=== PATIENT | male | born 2005 | race Two or more races ===

== ENCOUNTER 2023-08-28 20:20 | Inpatient (IN) | payer OTHER, SELFPAY ==
[2023-08-28] VITALS (11 sets, daily range): BP systolic 30–146; BP diastolic 73–90; BMI 24.1
[2023-08-28] MEDS: NSS 1000 IV ×2 (15:09→18:32)
[2023-08-28] MEDS: TORADOL 30 MG IV (15:13)
--- NOTE | 2023-08-28 15:13 | ED.GENMED ---
History of Present Illness
<Florentin Fletcher PA-C - Last Filed: 08/28/23 18:44>
General
Chief Complaint: Abdominal Pain
Source: patient
Time Seen by Provider: 08/28/23 14:44
History of Present Illness
History of Present Illness:
17-year-old male with no significant past medical history presenting emergency department for evaluation of sudden onset of periumbilical abdominal pain around 1145, somewhat severe, nonradiating, now a little bit more generalized but somewhat
improved than earlier. He denies any fevers, chills, rigors, nausea, vomiting, bowel changes or urinary symptoms. States he has had similar pain in the past that usually occurs when he is stressed but notes he did not seem to have any stress out
of the ordinary today. Surgical history was noted for previous hernia repair. Social history noncontributory. Patient did not take anything for pain prior to arrival.
Past History
<Florentin Fletcher PA-C - Last Filed: 08/28/23 18:44>
Past History
ED Past Medical History: None
ED Past Surgical History: Other (hernia)
Social History
Tobacco: Non-smoker
Alcohol: None
Drug: None
Personal: Single
Living: with family
Review of Systems
<Florentin Fletcher PA-C - Last Filed: 08/28/23 18:44>
Review of Systems
All Other Systems: ROS reviewed and negative except as documented in HPI and ROS
Phy Exam
<Florentin Fletcher PA-C - Last Filed: 08/28/23 18:44>
Physical Exam
Physical Exam:
GENERAL: Alert , in no apparent distress but does appear mildly uncomfortable
EYE: clear conjunctiva b/l
HEAD: NCAT
ENT: o/p clr, mmm.
CARDIAC: Regular rate and rhythm .
LUNGS: Clear breath sounds bilaterally, no acute respiratory distress, no wheezes/rales/rhonchi
ABDOMEN: Soft, without focal tenderness, no r/g, no cvat, negative Stanley sign, no tenderness at McBurney's point. Patient stating pain is not made any worse with palpation
NEUROLOGICAL: Alert and oriented
SKIN: Warm and dry, skin intact.
MUSCULOSKELETAL: No edema, well perfused.
PSYCH: Normal and appropriate interaction.
Scores
<Florentin Fletcher PA-C - Last Filed: 08/28/23 18:44>
Heart Failure Risk
Heart Failure Risk Score: Not Applicable
Heart Score for Chest Pain Patients
STEMI patient?: Not applicable
Withdrawal Assessment of Alcohol
Withdrawal Assessment Completed?: Not applicable
Course
<Florentin Fletcher PA-C - Last Filed: 08/28/23 18:44>
Orders/Labs/Results
Orders:
Orders
08/28/23 14:53
0.9% Sodium Chloride 1000 ml [Nss] 1,000 ml IV BOLUS
Ketorolac [Toradol] 30 mg IV NOW STA
08/28/23 15:11
Complete Blood Count/With Diff Urgent
Comprehensive Metabolic Panel Urgent
Lipase Urgent
Urinalysis Reflex To Culture Urgent
Date Specimen was Collected: 08/28/23
Time Specimen was Collected: 14:56
08/28/23 15:26
CT Abd/pelvis W Iv Cont Urgent
Comment:
Reason For Exam: generalized abd pain
08/28/23 17:05
Morphine Sulfate 2 mg IV NOW STA
08/28/23 18:19
0.9% Sodium Chloride 1000 ml [Nss] 1,000 ml IV BOLUS
Piperacillin/Tazo 3.375 Gram [Zosyn] 3.375 gram in 50 ml IV NOW
08/28/23 18:22
HYDROmorphone [Dilaudid] 0.5 mg IV NOW STA
08/28/23 18:23
Pantoprazole [Protonix IV] 80 mg IV NOW STA
Abnormal Lab Results
08/28/23
15:11
WBC 13.5 H 10^3/uL
(4.8-10.8)
MCV 74.8 L fL
(80.0-94.0)
MCH 24.2 L pg
(27.0-31.0)
MCHC 32.3 L g/dL
(33.0-37.0)
RDW 15.3 H %
(11.5-14.5)
Absolute Neuts (auto) 11.8 H 10^3/uL
(1.4-6.5)
Absolute Lymphs (auto) 1.1 L 10^3/uL
(1.2-3.4)
Neutrophils % 87.4 H %
(42.2-75.2)
Lymphocytes % 7.8 L %
(20.5-51.1)
Glucose 117 H mg/dl
(70-99)
Albumin 5.2 H g/dl
(3.5-5.0)
Urine Ketones 1+ A
(Negative)
Urine Glucose Trace A
(Negative)
08/28/23 15:11
08/28/23 15:11
Vital Signs
Initial and Last Documented VS:
Initial Vital Signs
Temp Pulse Resp BP Pulse Ox
98.2 F 70 20 134/90 97
08/28/23 13:30 08/28/23 13:30 08/28/23 13:30 08/28/23 13:30 08/28/23 13:30
Last Documented Vital Signs
Temp Pulse Resp BP Pulse Ox
98.2 F 80 19 135/82 99
08/28/23 15:29 08/28/23 15:29 08/28/23 15:29 08/28/23 18:28 08/28/23 15:29
Certified Massage Therapist consulted with Physician
Certified Massage Therapist consulted with physician?: Yes
Name of Physician Consulted: Grant
<Daria Burns MD - Last Filed: 08/28/23 18:53>
Orders/Labs/Results
Orders:
Orders
08/28/23 14:53
0.9% Sodium Chloride 1000 ml [Nss] 1,000 ml IV BOLUS
Ketorolac [Toradol] 30 mg IV NOW STA
08/28/23 15:11
Complete Blood Count/With Diff Urgent
Comprehensive Metabolic Panel Urgent
Lipase Urgent
Urinalysis Reflex To Culture Urgent
Date Specimen was Collected: 08/28/23
Time Specimen was Collected: 14:56
08/28/23 15:26
CT Abd/pelvis W Iv Cont Urgent
Comment:
Reason For Exam: generalized abd pain
08/28/23 17:05
Morphine Sulfate 2 mg IV NOW STA
08/28/23 18:19
0.9% Sodium Chloride 1000 ml [Nss] 1,000 ml IV BOLUS
Piperacillin/Tazo 3.375 Gram [Zosyn] 3.375 gram in 50 ml IV NOW
08/28/23 18:22
HYDROmorphone [Dilaudid] 0.5 mg IV NOW STA
08/28/23 18:23
Pantoprazole [Protonix IV] 80 mg IV NOW STA
Abnormal Lab Results
08/28/23
15:11
WBC 13.5 H 10^3/uL
(4.8-10.8)
MCV 74.8 L fL
(80.0-94.0)
MCH 24.2 L pg
(27.0-31.0)
MCHC 32.3 L g/dL
(33.0-37.0)
RDW 15.3 H %
(11.5-14.5)
Absolute Neuts (auto) 11.8 H 10^3/uL
(1.4-6.5)
Absolute Lymphs (auto) 1.1 L 10^3/uL
(1.2-3.4)
Neutrophils % 87.4 H %
(42.2-75.2)
Lymphocytes % 7.8 L %
(20.5-51.1)
Glucose 117 H mg/dl
(70-99)
Albumin 5.2 H g/dl
(3.5-5.0)
Urine Ketones 1+ A
(Negative)
Urine Glucose Trace A
(Negative)
08/28/23 15:11
08/28/23 15:11
Vital Signs
Initial and Last Documented VS:
Initial Vital Signs
Temp Pulse Resp BP Pulse Ox
98.2 F 70 20 134/90 97
08/28/23 13:30 08/28/23 13:30 08/28/23 13:30 08/28/23 13:30 08/28/23 13:30
Last Documented Vital Signs
Temp Pulse Resp BP Pulse Ox
98.2 F 80 19 135/82 99
08/28/23 15:29 08/28/23 15:29 08/28/23 15:29 08/28/23 18:28 08/28/23 15:29
<Florentin Fletcher PA-C - Last Filed: 08/28/23 18:44>
MDM/Problems Addressed
Differential Diagnosis Includes:
GERD, gastritis, peptic ulcer disease/duodenitis, appendicitis renal/ureteral colic, cholecystitis
MDM/Problems Addressed:
17-year-old male presenting emergency department for evaluation of sudden periumbilical abdominal pain that started around 1145 while at work. States pain is a little bit improved however little bit more generalized presently. Has had similar pain
in the past with no specific etiology for the pain. Abdominal exam is reassuring. Will check labs and treat with Toradol for the time being. Reassessment following. If patient has unrelieved symptoms or persistent symptoms, will consider CT
imaging for further evaluate
<Florentin Fletcher PA-C - Last Filed: 08/28/23 18:44>
*Radiology
Radiology exam reviewed: radiology read reviewed
*Pulse Oximetry
Patient hypoxic: no
*Critical Care Note
Total Time (30-74mins, 75-104mins- exclusive of procedures): Not Applicable
<Florentin Fletcher PA-C - Last Filed: 08/28/23 18:44>
Comment
Comment:
On first reevaluation patient is noting continued pain. 2 mg of morphine ordered. Pending CT imaging
Patient Management
Discussion with other providers: Urgent Care and Radiologist
Escalation/DeEscalation of care consider admission/obs:
At 6:15 PM I was notified by radiology that patient has a bowel perforation suspected to be secondary to a gastric ulcer. Ordered Zosyn, further pain control with 1/2 mg of Dilaudid and IV fluids. I notified general surgery, Dr. Lane, who will
come to the emergency department to evaluate the patient with plans to likely take to the OR. Patient remains hemodynamically stable.
ED Attending Note
<Florentin Fletcher PA-C - Last Filed: 08/28/23 18:44>
-
Portions of this chart may have been created with voice recognition software.� Occasional wrong word or��sound alike� substitutions may have occurred due to the inherent limitations of voice recognition software.
<Daria Burns MD - Last Filed: 08/28/23 18:53>
ED Attending Note
Patient seen and examined by attending physician: Yes
I performed the substantive portion of visit, reviewed & personally made and approve the management plan that is documented in note by myself or DARYL.: Yes
ED Attending Note:
17-year-old male with abrupt onset of pain while working today in his abdomen, upper and mid abdomen without radiation. No associated vomiting, fever, chills, chest pain, shortness of breath. On exam, patient has mild to moderate tenderness to
palpation, no rebound or guarding. CT consistent with perforation, likely from gastric ulcer. Patient stable and awaiting surgical consultation. PPI, pain meds, antibiotics started. Patient denies heavy nonsteroidal use.
Discharge Plan
Departure
Patient Disposition: OR
Date of Disposition: 08/28/23
Time of Disposition: 18:42
Presentation/result/management discussed w/ accepting MD/DO: Domingo
Discharge Problem:
Bowel perforation
Prescriptions:
No Action
No Current Medications
0
Referrals:
Larry Vo DO [Family Provider] -
Interventions
Interventions:
*Risk Screen - Suicide Last Done: 08/28/23 13:30
*General Assessment Last Done: 08/28/23 13:30
*Neglect/Abuse Screening Last Done: 08/28/23 13:30
ED- Fall Risk Assessment Last Done: 08/28/23 15:18
*ED COVID-19 Vaccine History Last Done: 08/28/23 15:15
VD-Jlxfps-Ctwkrzmsua Assessment Last Done: 08/28/23 15:18
Discharge Date and Time
Print Language: YAKUT
[2023-08-28 15:22] LABS: % Basophils 0.1 % (0-2); % Immature Granulocytes 0.3 % (0-0.5); % Lymphocytes 7.8 % (20.5-51.1); % Monocytes 4.4 % (1.7-9.3); % Neutrophils 87.4 % (42.2-75.2); Absolute Lymphocytes 1.1 10^3/uL (1.2-3.4); Absolute Monocytes 0.6 10^3/uL (0.1-0.6); Absolute Neutrophils 11.8 10^3/uL (1.4-6.5); Hematocrit 42.4 % (39.0-52.0); Hemoglobin 13.7 g/dL (13.0-18.0); Mean Corp Hgb Conc. 32.3 g/dL (33.0-37.0); Mean Corpuscular Hgb 24.2 pg (27.0-31.0); Mean Corpuscular Volume 74.8 fL (80.0-94.0); Mean Platelet Volume 10.2 fL (7.4-10.4); Nucleated Red Blood Cells % 0 % (-); Platelet Count 284 10^3/uL (130-400); Red Blood Cell Count 5.67 10^6/uL (4.70-6.10); Red Cell Dist. Width 15.3 % (11.5-14.5); White Blood Cell Count 13.5 10^3/uL (4.8-10.8)
[2023-08-28 15:41] LABS: ALT (SGPT) 17 U/L (0-50); AST (SGOT) 25 U/L (17-59); Albumin 5.2 g/dl (3.5-5.0); Alkaline Phosphatase 67 U/L (38-126); Blood Urea Nitrogen 10 mg/dl (9-20); Carbon Dioxide 25 mmol/L (22-30); Chloride 105 mmol/L (98-107); Estimated Creatinine Clearance > 125 ml/min; Glucose 117 mg/dl (70-99); Lipase 112 U/L (23-300); Potassium 3.9 mmol/L (3.5-5.1); Sodium 140 mmol/L (135-145); Total Protein 7.9 g/dl (6.3-8.2); eGFR > 60.00
[2023-08-28 16:16] LABS: Urine Albumin Negative (Neg - Trace); Urine Bilirubin Negative (Negative); Urine Character Clear (Clear); Urine Color Yellow; Urine Glucose Trace (Negative); Urine Ketone 1+ (Negative); Urine Leukocyte Negative (Negative); Urine Nitrite Negative (Negative); Urine Occult Blood Negative (Negative); Urine Specific Gravity 1.015 (<1.030); Urine Urobilinogen Negative (Neg - 1+); Urine pH 6.5 (5.0-9.0)
[2023-08-28] MEDS: MORPHINE SULFATE 2 MG IV (17:38)
[2023-08-28] MEDS: DILAUDID 0.5 MG IV (18:33)
[2023-08-28] MEDS: ZOSYN 50 IV (18:33)
[2023-08-28] MEDS: PROTONIX IV 80 MG IV (18:34)
--- NOTE | 2023-08-28 19:12 | EDRN ---
Report received, introduced myself to patient went in to get him ready for OR with all clothing off and in bag, patient reports last ate yesterday, Surgeon.
--- NOTE | 2023-08-28 19:16 | EDRN ---
Report to OR.
--- NOTE | 2023-08-28 19:29 | HPS.HSE ---
Family Physician
-
Family Physician: Larry Vo
Chief Complaint
-
Abdominal pain
History of Present Illness
Patient is a 17 yo M with a PMH notable for s/p open inguinal herniorrhaphy as a child who presents with less than 24 hours of upper abdominal pain. Javi states that his pain began early this AM. He describes a generalized though more upper
abdominal discomfort. His pain persisted and worsened throughout the day prompting presentation to the ED. He denies any nausea or vomiting. Denies any fevers or chills. He denies any fluctuations in bowel habits such as constipation, diarrhea,
bloody, or mucousy stools. He does report a history of upper abdominal discomfort with stress. He denies any NSAIDs, steroids, smoking, or alcohol use. He currently works at [employer] and is a student at [employer]. Family history
unknown.
Medical History
Past Medical History
Past Medical History: Reports Asthma (Childhood, outgrown)
Past Surgical History: Reports Other (Inguinal herniorrhaphy as a child)
Social History
Tobacco: Non-smoker
Alcohol: None
Drug: None
Personal: Single
Living: With Family
Employment: Other (Works at [employer] over the summer, student at [employer] at this time)
Family History
Family History: Adopted
Allergies / Home Medications
Allergies reflects when Allergies were last updated in [email or web address].
Home Medications with original date entered in [email or web address]
Allergy/Medication List:
Sulfa, anaphylaxis
Review of Systems
-
A 12 point ROS was completed and negative except as noted: Yes
Physical Exam
Vital Signs
Vital Signs
Temp Pulse Resp BP Pulse Ox
100.1 F 89 16 136/77 98
08/28/23 19:11 08/28/23 19:11 08/28/23 19:11 08/28/23 19:11 08/28/23 19:11
Physical Exam
General: Well Developed, Well Nourished and No Apparent Distress
HEENT: NormoCephalic and Anicteric
Respiratory: Non Labored Respirations
Cardiac: Regular Rhythm
GI: Soft, Non Distended, Tender (Upper abdomen) and Other (Peritoneal)
Musculoskeletal: No Edema
Skin: Warm and Dry
Neuro: Nonfocal/grossly intact
Laboratory Results
-
08/28/23 15:11
08/28/23 15:11
Laboratory Results
Total Bilirubin 1.0 mg/dl (0.2-1.3) 08/28/23 15:11
AST 25 U/L (17-59) 08/28/23 15:11
ALT 17 U/L (0-50) 08/28/23 15:11
Alkaline Phosphatase 67 U/L (38-126) 08/28/23 15:11
Lipase 112 U/L (23-300) 08/28/23 15:11
Data Reviewed
-
CT Scan: Image Personally Visualized and interpreted and Report Reviewed by me
Lab Data: Labs Reviewed by me
Impression/Plan
-
IMPRESSION:
Patient is a 17 yo M p/w perforated viscus
Most likely a gastric or duodenal ulcer based on clinical history of upper abdominal pain and CT scan with a small blip of air adjacent to the gastric antrum. Differential also includes perforated small bowel or diverticular disease. Natural
history and pathophysiology of the above was discussed. Options for management including medical management with antibiotics versus surgical management were considered and discussed. The pros and cons of both approaches was discussed. Increased
risk for failure of medical management and would recommend surgical intervention. Patient and family agree.
Plan for an exploratory laparotomy, repair of perforated viscus, possible bowel resection. The procedure itself, as well as the risks, benefits, and alternatives was discussed. Specifically, we discussed the risks of bleeding, infection, injury to
surrounding structures (bowel), wound complications, and anesthetic complications. Typical post procedure recovery was discussed. All questions answered. Consent signed.
PLAN:
-- Exploratory laparotomy, repair of perforated viscus, possible bowel resection
-- NPO, IVF, NGT to be placed operatively
-- Antibiotics: Zosyn
-- Pain control Tylenol and IV Dilaudid as needed, no NSAIDs
-- PPI twice daily
-- Admit postoperatively, tentative plan for NPO for 2 days postoperatively with dietary advancement and NGT removal on day 3 if drain outputs clear
--- NOTE | 2023-08-28 19:46 | W.SUR.PREOP ---
Pre-Operative Surgical Note
-
I have examined this patient prior to the performance of the scheduled procedure.
The patient's condition is unchanged from the time of the current History and
Physical and the patient is able to undergo the scheduled procedure.
--- NOTE | 2023-08-28 21:42 | W.IMMPOSTOP ---
Addendum entered and electronically signed by Hair Lane MD 08/29/23 15:30:
[facility]# [id number]
Original Note:
Surgical Immed Post Op Note
-
Primary Surgeon: Domingo
Assisting Surgeon: None
Pre-op Diagnosis: Perforated viscous
Post-op Diagnosis: Perforated gastric ulcer
Procedure Performed: Exploratory laparotomy, modified Marques patch repair of perforated gastric ulcer
Anesthesia Type: General
Specimen / Cultures:
1. Gastric ulcer biopsy for H.pylori and pathology
Estimated Blood Loss: 7 cc
Complications: None
Operative Findings:
1. 0.5 mm pre-pyloric ulcer, mild fibrinous debris, free spillage of bile
2. Modified Marques patch repair with 2-0 silk x3 and omental patch, leak test negative
3. 19 Fr Raúl drain into operative field, NGT position confirmed
Plan:
-- NPO, NGT for 2 days post-op, OK for diet advancement on POD#3 if JAROCHO non-bilious
-- Abx: Zosyn, f/u H. pylori studies, consider antifungal if WBC not corrected
-- PPI BID, no NSAIDs
[2023-08-28] MEDS: NORMOSOL-R 1000 IV (22:05)
[2023-08-28] MEDS: OFIRMEV 100 IV (22:07)
--- NOTE | 2023-08-28 22:45 | PTCARENOTE ---
Patient received from PACU, AAOX3, offers no complaints. Apical regular, blood pressure as documented. Palpable pulses throughout, no edema noted. Knee high SCDs maintained. Lungs clear, pulse ox 98% on room air. Left nare NG tube to LIS,
abdomen soft. Midline incision approximated, open to air. RLQ JAROCHO drain noted draining serosanguineous. Burns catheter draining yellow urine. #20 g in RAC with IVF infusing as ordered. Family at bedside. Plan of care discussed, call [facility] within
reach
[2023-08-29] VITALS (8 sets, daily range): BP systolic 101–124; BP diastolic 58–78; BMI 24.1
[2023-08-29] MEDS: PROTONIX IV IV (00:04)
[2023-08-29] MEDS: NSS (PRESERVATIVE FREE) IV (00:04)
[2023-08-29] MEDS: OFIRMEV 100 IV ×3 (02:46→14:33)
[2023-08-29] MEDS: NORMOSOL-R 1000 IV ×2 (05:11→17:21)
[2023-08-29] MEDS: ZOSYN 50 IV ×4 (06:05→23:22)
[2023-08-29] MEDS: PROTONIX IV 40 MG IV ×2 (08:09→19:50)
[2023-08-29] MEDS: NSS (PRESERVATIVE FREE) 10 ML IV ×2 (08:10→19:50)
[2023-08-29 10:50] LABS: Hematocrit 38.8 % (39.0-52.0); Hemoglobin 12.8 g/dL (13.0-18.0); Mean Corpuscular Hgb 24.9 pg (27.0-31.0); Mean Corpuscular Volume 75.5 fL (80.0-94.0); Mean Platelet Volume 10.7 fL (7.4-10.4); Platelet Count 203 10^3/uL (130-400); Red Blood Cell Count 5.14 10^6/uL (4.70-6.10); Red Cell Dist. Width 15.3 % (11.5-14.5); White Blood Cell Count 11.1 10^3/uL (4.8-10.8)
[2023-08-29 11:08] LABS: Blood Urea Nitrogen 12 mg/dl (9-20); Calcium 9.2 mg/dl (8.4-10.2); Carbon Dioxide 23 mmol/L (22-30); Chloride 105 mmol/L (98-107); Estimated Creatinine Clearance 123 ml/min; Glucose 122 mg/dl (70-99); Potassium 4.1 mmol/L (3.5-5.1); Sodium 137 mmol/L (135-145); eGFR > 60.00
--- NOTE | 2023-08-29 11:14 | W.PN.GS2 ---
Addendum entered and electronically signed by Hair Lane MD 08/29/23 12:49:
Patient seen and examined.
Feels improved with less abdominal pain. Pain overall well-controlled. No nausea or vomiting. No fevers.
Gen: NAD
HEENT: gastric output
Abd: soft, mild/moderate tenderness, ND, non-peritoneal, incision c/d/i - no erythema, ecchymosis or drainage, JAROCHO serosang
Labs reviewed; WBC trending down, Hb stable, kidney function
Patient is a 17 yo M POD#1 s/p exploratory laparotomy and modified Marques patch repair of perforated gastric ulcer
Recovering well, no postoperative concerns.
-- NPO, IVF
-- NGT decompression for 2 days post-op, will trial clears on POD#3 if JAROCHO output reassuring
-- Abx: Zosyn (Augmentin on DC) for 7-10 days post-op, consider antifungal if WBC remains elevated
-- F/u path and H. pylori
-- Pain control: Tylenol and IV Dilaudid, NO NSAIDS
-- GI: PPI BID
-- DVT: Lovenox
Original Note:
Today's Communication / Plan
-
Pt is on POD #1. Pt to remain NPO, and continue on, NGT, IVF, Abx, and PPIs.
Assessment / Plan
-
Demetrius Alfonso is a 17 y/o M on POD #1 for omental repair of a perforated gastric viscus.
-Pt to remain NPO and on NGT until POD #3.
-Continue to monitor drains.
-Diet can be advanced on POD #3 if the JAROCHO is clear.
-Pt to remain on NS today, will change to maintenance D5 tomorrow.
-Continue IV Zosyn.
-F/u H. Pylori study.
-Continue PPI Prophylaxis.
-Downtrending WBC. Continue to monitor and consider antifungal if WBC remains high.
Time Spent
Total Time Spent with Patient (in minutes): 15
Subjective Data
-
Date of Service: August 29, 2023
Alessandro Alfonso is a 17 M with no relevant PMHx who is POD #1 after omental repair of perforated gastric viscus. Pt has no acute complaints this morning, and states that his pain is well-controlled and he feels much better than yesterday. He denies
any nausea, vomiting, erythema, or pain around the surgical incisions sites.
Objective Data
-
Intake and Output
08/28/23 08/29/23 08/30/23
06:59 06:59 06:59
Intake Total 940 / 940
Output Total 1175 / 1175
Balance -235 / -235
Intake:
IV fluids (Total) 800 / 800
Normosol 100 / 100
IV piggybacks 50 / 50
Amount instilled into GI Tube ( 90 / 90
Total)
Jay Sump 90 / 90
Output:
Drain Output (Total) 45 / 45
Right Lower Abdomen Eric- 45 / 45
Anna
Gastrointestinal tube output ( 30 / 30
Total)
Jay Sump 30 / 30
Urine, Burns 1100 / 1100
Vital Signs
Temp Pulse Resp BP Pulse Ox
97.6 F 58 18 124/64 97
08/29/23 07:00 08/29/23 07:00 08/29/23 07:00 08/29/23 07:00 08/29/23 07:00
Lab Results
08/29/23 10:04
08/29/23 10:04
Calcium 9.2 mg/dl (8.4-10.2) 08/29/23 10:04
Total Bilirubin 1.0 mg/dl (0.2-1.3) 08/28/23 15:11
AST 25 U/L (17-59) 08/28/23 15:11
ALT 17 U/L (0-50) 08/28/23 15:11
Alkaline Phosphatase 67 U/L (38-126) 08/28/23 15:11
Total Protein 7.9 g/dl (6.3-8.2) 08/28/23 15:11
Albumin 5.2 g/dl (3.5-5.0) H 08/28/23 15:11
Physical Exam
-
Vital Signs: Stable
General: Patient appears comfortable and in no acute distress.
Respiratory: Normal work of breathing.
Abdomen: Soft, non-distended, and mildly tender in the epigastrium. The surgical incisions are in dry and intact, with no surrounding erythema or ecchymosis. NG tube is in place and draining non-bilious gastric contents. JAROCHO Drain is in place and is
draining a small amount of non-bilious, serosanguineous fluid.
Psych: Calm, cooperative.
--- NOTE | 2023-08-29 14:04 | CM ---
Initial assessment completed with patient and father. Patient with NGT. Patient lives with his father and grandmother in a 2 story home with basement, B/B on 2nd floor and 1/2 bath on 1st, 3 steps to enter, no DME or in-home services. ADMINISTRATIVE VOLUNTEER was
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 No history of psychiatric hospitalizations. [facility] in [place] and PCP is Dr. Larry Vo. Discharge plan of care TBD. Anticipate NN vs HH VN.
[2023-08-29] MEDS: DILAUDID 0.5 MG IV ×3 (16:47→23:23)
[2023-08-29] MEDS: LOVENOX 40 MG SC (17:20)
[2023-08-29 23:43] LABS: Glucose - Point of Care 88 mg/dl (70-99)
[2023-08-30] MEDS: NORMOSOL-R 1000 IV (02:00)
--- NOTE | 2023-08-30 03:32 | DOWNTIME ---
There was a [employer] Client [employer]r Downtime on 08/30/2023 from 0100 to 08/30/2023 at 0255. Downtime documentation of patient's care, including medication administrations, has been reconciled in the electronic record per guidelines. Refer to the
patient's paper chart under the miscellaneous tab to see printed paper medication records and downtime forms.
[2023-08-30 03:54] VITALS: BP 122/83
[2023-08-30] MEDS: ZOSYN 50 IV ×4 (05:15→23:56)
[2023-08-30 05:39] LABS: Hematocrit 36.4 % (39.0-52.0); Hemoglobin 11.8 g/dL (13.0-18.0); Mean Corp Hgb Conc. 32.4 g/dL (33.0-37.0); Mean Corpuscular Hgb 24.7 pg (27.0-31.0); Mean Corpuscular Volume 76.3 fL (80.0-94.0); Mean Platelet Volume 10.6 fL (7.4-10.4); Platelet Count 180 10^3/uL (130-400); Red Blood Cell Count 4.77 10^6/uL (4.70-6.10); Red Cell Dist. Width 15.4 % (11.5-14.5); White Blood Cell Count 8.4 10^3/uL (4.8-10.8)
[2023-08-30 05:52] LABS: Glucose - Point of Care 79 mg/dl (70-99)
[2023-08-30 05:55] LABS: Blood Urea Nitrogen 18 mg/dl (9-20); Calcium 8.6 mg/dl (8.4-10.2); Carbon Dioxide 27 mmol/L (22-30); Chloride 104 mmol/L (98-107); Estimated Creatinine Clearance 101 ml/min; Glucose 82 mg/dl (70-99); Sodium 138 mmol/L (135-145); eGFR > 60.00
[2023-08-30] MEDS: DILAUDID 0.5 MG IV ×3 (07:25→20:57)
[2023-08-30] MEDS: NSS (PRESERVATIVE FREE) 10 ML IV ×2 (07:27→19:40)
[2023-08-30] MEDS: PROTONIX IV 40 MG IV ×2 (07:27→19:35)
[2023-08-30 07:32] VITALS: BP 141/84
--- NOTE | 2023-08-30 09:05 | W.PN.GS2 ---
Today's Communication / Plan
-
- NPO, NGT plan for UGI or dietary advancement tomorrow
- IS
- Switch to mIVF
Assessment / Plan
-
Patient is a 17 yo M on POD#2 s/p exploratory laparotomy and modified Marques patch repair of pre-pylori ulcer.
Recovering well overall. Low grade fever, likely atelectasis, less likely UTI (no symptoms) or leak (JAROCHO non-bilious). Trend further work-up if true fever. IV Tylenol re-ordered. Plan for UGI if spikes fever tomorrow prior to dietary advancement
- NPO, NGT plan for UGI or dietary advancement tomorrow
- IS
- Switch to mIVF
- Pain control: IV Tylenol and Dilaudid, NO NSAIDS
- Abx: IV Zosyn for 7-10 days, normalized WBC, consider antifungal if WBC remains high.
- F/u H. Pylori study.
- GI: PPI BID
- DVT: Lovenox
Subjective Data
-
Date of Service: August 30, 2023
Reports abdominal soreness, difficult to take deep breaths. Denies any worsening shortness of breath at baseline. No nausea or vomiting. No worsening deep or abdominal pain. Low-grade fevers noted. Denies any burning with urination.
Objective Data
-
Intake and Output
08/29/23 08/30/23 08/31/23
06:59 06:59 06:59
Intake Total 940 / 940 2630 / 2630
Output Total 1175 / 1175 2200 / 2200
Balance -235 / -235 430 / 430
Intake:
IV fluids (Total) 800 / 800 2300 / 2300
Normosol 100 / 100
IV piggybacks 50 / 50 150 / 150
Amount instilled into GI Tube ( 90 / 90 180 / 180
Total)
[place] Sump 90 / 90 180 / 180
Output:
Drain Output (Total) 40
Right Lower Abdomen Eric- 40 / 40
Anna
Gastrointestinal tube output ( 860 / 860
Total)
[place] Sump 860 / 860
Urine, Burns 1100 / 1100 600 / 600
Urine, Voided 700 / 700
Vital Signs
Temp Pulse Resp BP Pulse Ox
100.2 F 87 18 141/84 94
08/30/23 07:32 08/30/23 07:32 08/30/23 07:32 08/30/23 07:32 08/30/23 07:32
Lab Results
08/30/23 04:35
08/30/23 04:35
Calcium 8.6 mg/dl (8.4-10.2) 08/30/23 04:35
Total Bilirubin 1.0 mg/dl (0.2-1.3) 08/28/23 15:11
AST 25 U/L (17-59) 08/28/23 15:11
ALT 17 U/L (0-50) 08/28/23 15:11
Alkaline Phosphatase 67 U/L (38-126) 08/28/23 15:11
Total Protein 7.9 g/dl (6.3-8.2) 08/28/23 15:11
Albumin 5.2 g/dl (3.5-5.0) H 08/28/23 15:11
Physical Exam
-
Gen: NAD
Abd: soft, tender to palpation overlying incision, ND, non-peritoneal, incision c/d/i - no erythema or drainage, mild ecchymosis at cranial aspect of incision, JAROCHO serosang
[2023-08-30] MEDS: D5/0.45%NSS with KCL 20 MEQ 1000 IV ×2 (09:34→21:05)
[2023-08-30] MEDS: OFIRMEV 100 IV ×3 (09:36→22:11)
[2023-08-30 12:11] LABS: Glucose - Point of Care 102 mg/dl (70-99)
--- NOTE | 2023-08-30 12:20 | CM ---
Patient seen at bedside with father present. Patient stated that he was OK, father with no questions or concerns at this time. CM will continue to follow for discharge planning needs.
Plan; home with no needs vs home with VN
[2023-08-30 12:40] VITALS: BP 122/78
[2023-08-30 15:33] VITALS: BP 121/74
[2023-08-30] MEDS: LOVENOX 40 MG SC (17:53)
[2023-08-30] MEDS: ZOFRAN 4 MG IV (18:06)
[2023-08-30 18:23] LABS: Glucose - Point of Care 105 mg/dl (70-99)
[2023-08-30 23:52] VITALS: BP 121/75
[2023-08-31] MEDS: DILAUDID 0.5 MG IV ×4 (01:17→18:11)
[2023-08-31] MEDS: OFIRMEV 100 IV (03:59)
[2023-08-31] MEDS: ZOSYN 50 IV ×4 (05:53→23:48)
[2023-08-31] MEDS: ZOFRAN 4 MG IV (05:54)
[2023-08-31] MEDS: D5/0.45%NSS with KCL 20 MEQ 1000 IV (06:35)
--- NOTE | 2023-08-31 06:44 | PTCARENOTE ---
04:33Alisha from radiology was called to inquire about pt's x-ray and nurse was told x-ray is scheduled but after 9am as a fit in as emergency and previous scheduled pts will be done first, but they will call and contrast will be administered at
x-ray.
[2023-08-31 07:49] VITALS: BP 121/81
[2023-08-31] MEDS: PROTONIX IV 40 MG IV ×2 (08:28→20:02)
[2023-08-31] MEDS: NSS (PRESERVATIVE FREE) 10 ML IV ×2 (08:28→20:02)
[2023-08-31 08:53] VITALS: BMI 24.1
--- NOTE | 2023-08-31 09:29 | CM ---
Patient seen at bedside, with father present. Patient with N/G tube, plan to have it removed per patient father later today. CM will continue to follow for discharge planning needs.
Plan; home with no needs; watch for possible VN
--- NOTE | 2023-08-31 09:47 | PTCARENOTE ---
pt transported to radiology department via stretcher accompanied by father and volunteer. Right nare NG Tube flushed and clamped prior to transport.
--- NOTE | 2023-08-31 14:18 | W.PN.GS2 ---
Today's Communication / Plan
-
-- UGI
Assessment / Plan
-
Patient is a 17 yo M on POD#3 s/p exploratory laparotomy and modified Marques patch repair of pre-pylori ulcer.
Recovering well overall. Low grade fever, likely atelectasis, less likely UTI (no symptoms) or leak (JAROCHO non-bilious). Trend, further work-up if true fever. Plan for UGI if spikes fever tomorrow prior to dietary advancement
- NPO, NGT, plan for UGI
- IS
- mIVF
- Pain control: IV Tylenol and Dilaudid, NO NSAIDS
- Abx: IV Zosyn for 7-10 days, normalized WBC, consider antifungal if WBC remains high.
- H. Pylori and cancer negative
- GI: PPI BID
- DVT: Lovenox
Subjective Data
-
Date of Service: August 31, 2023
Feels improved. Less pain. No nausea or vomiting. No fevers.
Objective Data
-
Intake and Output
08/30/23 08/31/23 09/01/23
06:59 06:59 06:59
Intake Total 2630 / 2630 2790 / 2790
Output Total 2200 / 2200 1650 / 1650
Balance 430 / 430 1140 / 1140
Intake:
IV fluids (Total) 2300 / 2300 2009
IV piggybacks 150 / 150 600 / 600
Amount instilled into GI Tube ( 180 / 180 180 / 180
Total)
Gates Sump 180 / 180 180 / 180
Output:
Drain Output (Total) 40 / 40 30 / 30
Right Lower Abdomen Eric- 40 / 40 30 / 30
Anna
Gastrointestinal tube output ( 860 / 860 620 / 620
Total)
Gates Sump 860 / 860 620 / 620
Urine, Burns 600 / 600
Urine, Voided 700 / 700 1000 / 1000
Other:
Number of approximated MODERATE 2
amounts of urine
How many times incontinent 1
SMALL amount urine
Vital Signs
Temp Pulse Resp BP Pulse Ox
99.2 F 95 16 121/81 96
08/31/23 07:49 08/31/23 07:49 08/31/23 07:49 08/31/23 07:49 08/31/23 08:00
Lab Results
08/30/23 04:35
08/30/23 04:35
Calcium 8.6 mg/dl (8.4-10.2) 08/30/23 04:35
Total Bilirubin 1.0 mg/dl (0.2-1.3) 08/28/23 15:11
AST 25 U/L (17-59) 08/28/23 15:11
ALT 17 U/L (0-50) 08/28/23 15:11
Alkaline Phosphatase 67 U/L (38-126) 08/28/23 15:11
Total Protein 7.9 g/dl (6.3-8.2) 08/28/23 15:11
Albumin 5.2 g/dl (3.5-5.0) H 08/28/23 15:11
Physical Exam
-
Gen: NAD
Abd: soft, tender to palpation overlying incision, ND, non-peritoneal, incision c/d/i - no erythema or drainage, ecchymosis at cranial aspect of incision, no palpable hernia, JAROCHO serosang
[2023-08-31 15:57] VITALS: BP 126/85
[2023-08-31] MEDS: ULTRAM 50 MG PO ×2 (16:20→22:30)
[2023-08-31] MEDS: LOVENOX 40 MG SC (17:55)
[2023-08-31 23:10] VITALS: BP 127/76
[2023-09-01] MEDS: ZOSYN 50 IV (05:25)
[2023-09-01] MEDS: ULTRAM 50 MG PO (06:40)
[2023-09-01 07:00] VITALS: BP 142/77
--- NOTE | 2023-09-01 09:19 | CM ---
Patient seen at bedside with PA and father present. Patient for discharge home today with no needs at this time. Patient to follow up with PA/surgeon. CM will continue to follow for discharge planning needs.
Plan; home with no needs.
[2023-09-01] MEDS: NSS (PRESERVATIVE FREE) 10 ML IV (09:35)
[2023-09-01] MEDS: PROTONIX IV 40 MG IV (09:36)
--- NOTE | 2023-09-01 10:10 | W.PN.GS2 ---
Addendum entered and electronically signed by Hair Lane MD 09/01/23 13:45:
Patient seen and examined.
No complaints. No worsening abdominal pain, no nausea or emesis. No fevers.
Gen: NAD
Abd: soft, minimal tenderness overlying incision, ND, non-peritoneal, incision c/d/i - no erythema, ecchymosis or drainage, JAROCHO serosang
Patient is a 17 yo M on POD#4 s/p exploratory laparotomy and modified Marques patch repair of pre-pylori ulcer.
Recovering well overall.
AFVSS
UGI normal and NGT removed on 08/30 and tolerating diet advancement
JAROCHO with ssf, nonbilious. Removed at bedside in anticipation of discharge
- Soft diet
- IS
- mIVF
- Pain control: IV Tylenol and Tramadol, NO NSAIDS
- Abx: transition to PO Augmentin upon discharge x7 days
- H. Pylori and cancer negative
- GI: PPI BID
- DVT: Lovenox
Original Note:
Today's Communication / Plan
-
Dispo planning
Assessment / Plan
-
Patient is a 17 yo M on POD#4 s/p exploratory laparotomy and modified Marques patch repair of pre-pylori ulcer.
Recovering well overall.
AFVSS
UGI normal and NGT removed on 08/30 and tolerating diet advancement
JAROCHO with ssf, nonbilious. Removed at bedside in anticipation of discharge
- Soft diet
- IS
- mIVF
- Pain control: IV Tylenol and Tramadol, NO NSAIDS
- Abx: transition to PO Augmentin upon discharge x7 days
- H. Pylori and cancer negative
- GI: PPI BID
- DVT: Lovenox
Subjective Data
-
Date of Service: September 01, 2023
Patient seen and examined at bedside. Denies n/v. Tolerating diet. Denies pain. Questions answered. Father at bedside
Objective Data
-
Intake and Output
08/31/23 09/01/23 09/02/23
06:59 06:59 06:59
Intake Total 2790 / 2790 2280 / 2280
Output Total 1650 / 1650 40 / 40
Balance 1140 / 1140 2240 / 2240
Intake:
Oral fluids 1200 / 1200
IV fluids (Total) 2009 880 / 880
IV piggybacks 600 / 600 200 / 200
Amount instilled into GI Tube ( 180 / 180
Total)
Cameron Sump 180 / 180
Output:
Drain Output (Total) 40 / 40
Right Lower Abdomen Eric- 40 / 40
Anna
Gastrointestinal tube output ( 620 / 620
Total)
Cameron Sump 620 / 620
Urine, Voided 1000 / 1000
Other:
Number of approximated MODERATE 2 4
amounts of urine
How many times incontinent 1
SMALL amount urine
Vital Signs
Temp Pulse Resp BP Pulse Ox
97.7 F 80 18 142/77 100
09/01/23 07:00 09/01/23 07:00 09/01/23 07:00 09/01/23 07:00 09/01/23 08:00
Lab Results
08/30/23 04:35
08/30/23 04:35
Calcium 8.6 mg/dl (8.4-10.2) 08/30/23 04:35
Total Bilirubin 1.0 mg/dl (0.2-1.3) 08/28/23 15:11
AST 25 U/L (17-59) 08/28/23 15:11
ALT 17 U/L (0-50) 08/28/23 15:11
Alkaline Phosphatase 67 U/L (38-126) 08/28/23 15:11
Total Protein 7.9 g/dl (6.3-8.2) 08/28/23 15:11
Albumin 5.2 g/dl (3.5-5.0) H 08/28/23 15:11
Physical Exam
-
Gen: NAD
Abd: soft, NT, ND, non-peritoneal, incision c/d/i - no erythema or drainage, ecchymosis at cranial aspect of incision, no palpable hernia, JAROCHO serosang (removed)
--- NOTE | 2023-09-01 11:08 | W.DCSUMMARY ---
Discharge Summary
Discharge Data
Date of Admission: 08/28/23
Date of Discharge: 09/01/23
-
Pending Results: No
Hospital Course
This is a 17 yo male who presented with approximately 24 hours of upper abdominal pain with CT scan demonstrating a small blip of air adjacent to the gastric antrum. He was taken for exploratory laparotomy with perforated gastric ulcer noted intraop
and a modified Marques patch repair was preformed. Biopsy was sent and negative for H. Pylori and malignancy. He denies NSAID, alcohol or nicotine use. He did well in the immediate post operative period. NGT was able to be removed on post operative
day 3 after UGI testing demonstrated no extravasation of contrast. He tolerated dietary advancements thereafter with good control of pain. He was discharged on BID PPI, analgesics and one week of antibiotics (Augmentin) to complete a full 10 day
course.
Discharge Plan
-
Patient Disposition: Home (Routine Discharge)
Discharge Diagnosis/Procedures: Perforated gastric ulcer with exploratory laparotomy, modified marques patch repair
Condition: Good
Diet: Low Fiber
Additional Diets: small meals as tolerated
Activity: No strenuous activity
Additional Activity: Do not lift more than 15 lbs for the next 4-6 weeks
Driving Restrictions: wait until off narcotics/comfortable twisting
Bathing Restrictions: OK to Shower
Wound Care: Ok to shower and wash your incisions with soap and water. The glue over your incisions will flake off in 2-3 weeks. Avoid scrubbing or picking off the glue.
Cover the area where your drain was with a dry gauze dressing or bandage and change daily and as needed until drainage no longer present.
Activity Restrictions/Additional Instructions:
Call your surgeon if you have fevers >100.5, nausea with vomiting, or worsening abdominal pain.
Instructions: Low Fiber Diet
Referrals:
Hair Lane MD [Active] - in two weeks
Larry Vo DO [Family Provider] -
Additional Discharge Medication Instructions: Do not take NSAIDs (ibuprofen, naproxen, Aleve, Advil, aspirin, etc.). Tylenol is OK to take. Do not drink alcohol or use tobacco (smoking or vaping) as this contributes to stomach ulcers
Prescriptions:
New
acetaminophen 325 mg tablet
650 mg PO Q4HPRN PRN (Reason: mild pain) Qty: 1 0RF
tramadol 50 mg tablet
25 - 50 mg PO Q6HPRN PRN (Reason: severe pain/breakthrough pain) Qty: 15 0RF
amoxicillin-pot clavulanate 875-125 mg tablet
1 tab PO Q12 Qty: 14 0RF
pantoprazole 40 mg tablet,delayed release (DR/EC)
40 mg PO BID Qty: 60 0RF
Discharge Orders:
Discharge Patient (As Directed); Ordered 09/01/23
Ordered By: Gabbi Duenas
Discharge Date and Time
Print Language: MONGOLIAN
[2023-09-01 11:57] VITALS: BP 139/90
== END 2023-09-01 12:26 | disposition home or self-care (01) | DRG 327 ==
LOC: 2 SOUTH 20:20
PROVIDERS: Physician Assistant Medical; ADMITTING PHYSICIAN Surgery; EMERGENCY PHYSICIAN Emergency Medicine; FAMILY PHYSICIAN Family Medicine
PROC: 0WJG0ZZ Inspection of Peritoneal Cavity, Open Approach (ICD-10-PCS; 2023-08-29)
PROC: 0W9G00Z Drainage of Peritoneal Cavity with Drainage Device, Open Approach (ICD-10-PCS; 2023-08-29)
PROC: 0DQ60ZZ Repair Stomach, Open Approach (ICD-10-PCS; 2023-08-29)
DX: K25.1 Acute gastric ulcer with perforation (principal); J98.11 Atelectasis
CPT/HCPCS: 88305; 74177; 74240; 80048; 80053; 81003; 82962; 83690; 85025; 85027; 88342; 96361; 96365; 96375; 99285; Q9967